=== PATIENT | female | born 1970 | race Caucasian/White ===

== ENCOUNTER 2024-08-16 11:53 | Day surgery (SDC) | payer BC ==
[~2024-08-16] VITALS: Ht 175.3 cm; Wt 115.9 kg
[~2024-08-16 11:53] MED LIST: IBLOOD GLUCOSE TEST STRIP 1 EA TEST VI PRN; LACTATED RINGER'S 1,000 ML IV SCH; LIDOCAINE HCL 1% 5 ML SDV INJ ONE; MIDAZOLAM HCL 5 MG/5 ML VIAL IV PRN; fentaNYL citrate 100 MCG/2 ML VIAL IV PRN
[2024-08-16 12:40] VITALS: BP 129/63
[2024-08-16] MEDS ORDERED: BUPROPION XL150 MG PO (12:42)
[2024-08-16] MEDS ORDERED: METOPROLOL SUCC25 MG PO (12:42)
--- NOTE | 2024-08-16 14:26 | NUR ---
PT UPDATED ON SURGERY WAIT TIME. NO OTHER NEEDS AT THIS TIME. CALL LIGHT WITHIN REACH.
[2024-08-16] MEDS ORDERED: fentaNYL citrate 100 MCG/2 ML VIAL ONE (14:55)
[2024-08-16] MEDS ORDERED: MIDAZOLAM HCL 5 MG/5 ML VIAL ONE (14:55)
--- NOTE | 2024-08-16 16:01 | NUR ---
08/16/24 1601 Madeleine Gomez PATIENT'S OXYGEN SATURATION REMAINS 99% ON 2L VIA NC. OXYGEN IS DISCONTINUED AT THIS TIME.
[2024-08-16 16:22] VITALS: BP 124/70
--- NOTE | 2024-08-17 19:47 | OR ---
[facility] [address], [place] [address] Signed DATE OF OPERATION: 08/16/2024 SURGEON: Starr Cadet MD PREOPERATIVE DIAGNOSIS: Colon screening. POSTOPERATIVE DIAGNOSIS: Normal colon to cecum. PROCEDURE: Total colonoscopy to cecum. ANESTHESIA: Intravenous sedation; fentanyl 100 mcg, Versed 5 mg. INDICATION: This 54-year-old white woman is a patient of Agnieszka Cronin, is referred for colon screening. She has never had a colon evaluation in the past. She has no family history of colon cancer and no symptoms of bleeding, diarrhea, or constipation. She understands risk of bleeding, infection, and perforation related to colonoscopy and wished to proceed. FINDINGS: The prep was excellent. Complete colonoscopy was undertaken of the cecum with full intubation of the cecum. There was no sign of polyps, diverticular formation, colitis, or cancer. DESCRIPTION OF PROCEDURE: The patient was brought to the endoscopy suite and placed in the lateral decubitus position, given intravenous sedation to the point of slurred speech and nystagmus. Digital rectal examination was normal. An Olympus video colonoscope was passed in the rectum and manipulated throughout the colon ultimately intubating the cecum itself. The ileocecal valve and appendiceal orifice were normal. Scope was then withdrawn and examination throughout showed no sign of abnormality, specifically no polyps, diverticular formation, colitis, or cancer. Retroflexed view was normal as well. Scope was removed and the patient was taken to the recovery room in good condition. Electronically Signed By: STARR CADET MD 08/17/241946 PATIENT NAME: KASSY ASTORGA OPERATIVE REPORT DATE OF : 70 REPORT #: [id number] PHYSICIAN: STARR CADET MD PCP: AGNIESZKA CRONIN REPORT IS CONFIDENTIAL AND NOT TO BE RELEASED WITHOUT AUTHORIZATION [address] [place], [place] [address] Signed CONCLUDING DIAGNOSIS: Normal colon to cecum. PLAN: Recommend repeat colonoscopy in 10 years, sooner if symptoms should develop. She will return to the ongoing care of THERESE Farrell. MD FREDERICK Mcgill/INDY /[id number] cc: THERESE Farrell Copies: AGNIESZKA CRONIN ~ Electronically Signed By: STARR CADET MD 08/17/24 1947 PATIENT NAME: KASSY ASTORGA OPERATIVE REPORT DATE OF : 70 REPORT #: [id number] PHYSICIAN: STARR CADET MD PCP: AGNIESZKA CRONIN REPORT IS CONFIDENTIAL AND NOT TO BE RELEASED WITHOUT AUTHORIZATION
== END 2024-08-16 16:36 | disposition home or self-care (01) ==
LOC: DS 11:53
PROVIDERS: ATTEND Surgery
PROC: 0DJD8ZZ Inspection of Lower Intestinal Tract, Via Natural or Artificial Opening Endoscopic (ICD-10-PCS; principal; 2024-08-16 13:00)
DX: Z12.11 Encounter for screening for malignant neoplasm of colon (principal); I10 Essential (primary) hypertension; F32.A Depression, unspecified; E66.9 Obesity, unspecified; Z68.37 Body mass index [BMI] 37.0-37.9, adult; Z87.442 Personal history of urinary calculi; Z79.899 Other long term (current) drug therapy
CPT/HCPCS: 99153; G0500; J2250; J3010; J7121